=== PATIENT | female | born 1985 | race Caucasian/White ===

== ENCOUNTER → 2021-11-30 | Outpatient (CLI) | payer OTHER ==
[~2021-11-30] MED LIST: DOCUSATE SODIU250 MG PO; HYDROCODONE-AC1 EACH PO; IBU600 MG PO; IBUPROFEN600 MG PO; NITROFURANTOIN50 MG PO; SOFOSBUVIR-VEL1 EACH PO; TRAZODONE HCL50 MG PO
[2021-11-30 11:13] LABS: HEMOGLOBIN 13.3 gm/dl (12.3-15.3); RED BLOOD COUNT 4.86 M/UL (4.00-5.10); WHITE BLOOD COUNT 6.5 K/UL (4.5-11.0)
== END ==
LOC: OPSV2 10:00
PROVIDERS: Obstetrics & Gynecology
DX: Z01.812 Encounter for preprocedural laboratory examination (principal); N81.9 Female genital prolapse, unspecified
CPT/HCPCS: 81001; 85025